=== PATIENT | female | born 1945 | race Caucasian/White ===

== ENCOUNTER 2018-12-17 18:54 | Inpatient (IN) | payer BC, MEDICARE, OTHER ==
[~2018-12-17] VITALS: Ht 170.2 cm; Wt 89.8 kg
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
[2018-12-18 02:40] VITALS: BP 134/94
[2018-12-18] MEDS ORDERED: CIPR-262 PO (02:58)
[2018-12-18] MEDS ORDERED: GABA-534 PO (02:58)
[2018-12-18] MEDS ORDERED: ATOR20TA PO (02:58)
[2018-12-18] MEDS ORDERED: ASPI-605 PO (02:58)
[2018-12-18] MEDS ORDERED: DOCU100C36 PO (02:58)
[2018-12-18] MEDS ORDERED: LISI-603 PO (02:58)
[2018-12-18] MEDS ORDERED: POLY17PO4 PO (02:58)
[2018-12-18] MEDS ORDERED: ZOLPIDEM TARTRATE 5 MG TABLET PO PRN (03:00)
[2018-12-18] MEDS ORDERED: LORAZEPAM 0.5 MG TABLET PO PRN (03:00)
[2018-12-18] MEDS ORDERED: MAG HYDROX/AL HYDROX/SIMETH 30 ML UDC PO PRN (03:00)
[2018-12-18] MEDS ORDERED: ACETAMINOPHEN 325 MG TABLET PO PRN (03:00)
[2018-12-18] MEDS ORDERED: MAGNESIUM HYDROXIDE 30 ML UDC PO PRN (03:00)
--- NOTE | 2018-12-18 06:35 | NUR ---
RN NOTES CALLED SON, CAN WATSON, AND INFORMED HIM OF HIS MOTHER'S ADMISSION
--- NOTE | 2018-12-18 06:40 | NUR ---
RN NOTES [facility] PAGED- FOR MED. RECON. A/W CALL BACK
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
[2018-12-18] MEDS: Z GUARD REMEDY 2 OZ OINT TP SCH (09:00)
[2018-12-18] MEDS ORDERED: Z GUARD REMEDY 2 OZ OINT TP PRN (09:00)
--- NOTE | 2018-12-18 10:36 | NUR ---
GPS RN NOTED: RECEIVED PT IN THE ROOM RESTING IN BED REFUSED VS, NON COOPERATIVE, REFUSED SKIN ASSESSMENT WITH WOUND NURSE. WILL CONTINUE MONITORING FOR SAFETY AND BEHAVIOR Q 15 MIN
[2018-12-18] MEDS: GABAPENTIN 100 MG CAPSULE PO SCH ×2 (12:30→16:07)
[2018-12-18] MEDS ORDERED: GABAPENTIN 300 MG CAPSULE PO SCH (13:00)
[2018-12-18 13:48] LABS: CALCIUM, SERUM 9.2 mg/dL (8.5-10.1); CARBON DIOXIDE 25 mmol/L (21-32); CHLORIDE 103 mmol/L (98-107); GLUCOSE 136 mg/dL (74-106); POTASSIUM 4.2 mmol/L (3.5-5.1); SODIUM SERUM 138 mmol/L (136-145); UREA NITROGEN, BLOOD 14 mg/dL (7-18)
--- NOTE | 2018-12-18 14:02 | NUR ---
Initial Discharge Plan: Pt currently resides at [facility] located at [address] [place] [id number]; ([phone]). Per pt, she would like to return. SW has a return agreement from the facility stating that she can return. SW will form a safe and proper discharge. Pt will form a safe and proper discharge.
[2018-12-18 16:00] VITALS: BP 127/60
[2018-12-18] MEDS: QUETIAPINE FUMARATE 25 MG TABLET PO SCH ×3 (16:07→22:40)
[2018-12-18] MEDS: POLYETHYLENE GLYCOL 3350 17 GM POWD.PACK PO SCH (16:07)
[2018-12-18] MEDS: CLOTRIMAZOLE 1% 15 GM TUBE TP SCH (16:08)
[2018-12-18] MEDS: CIPROFLOXACIN HCL 500 MG TABLET PO SCH (18:17)
[2018-12-18 20:00] VITALS: BP 125/50
[2018-12-18] MEDS: ATORVASTATIN 10 MG TABLET PO SCH ×2 (22:00→22:39)
[2018-12-19 06:27] LABS: BASOPHILS % (AUTO) 0.4 % (0.0-2.0); EOSINOPHILS % (AUTO) 2.2 % (0.0-6.0); HEMATOCRIT 37 % (33-45); HEMOGLOBIN 12.4 g/dL (11.5-14.8); LYMPHOCYTES # (AUTO) 2.4 /CMM (0.8-4.8); MEAN CORPUSCULAR HGB CONC 34 g/dl (31.0-36.0); MEAN CORPUSCULAR VOLUME 90 fL (82-100); MONOCYTES # (AUTO) 0.8 /CMM (0.1-1.30); MONOCYTES % (AUTO) 9.3 % (2.0-12.0); NEUTROPHILS # (AUTO) 5.2 /CMM (1.8-8.9); NEUTROPHILS % (AUTO) 60.1 % (43.0-81.0); PLATELET COUNT (AUTO) 222 /CMM (150-450); RED BLOOD CELL COUNT(AUTO) 4.08 MIL/uL (4.0-5.2); WHITE BLOOD COUNT (AUTO) 8.6 K/uL (4.3-11.0)
[2018-12-19 06:49] LABS: ALANINE AMINOTRANSFERASE 26 U/L (12-78); ALBUMIN 3.1 g/dL (3.4-5.0); ALKALINE PHOSPHATASE 77 U/L (46-116); ASPARTATE AMINOTRANSFERASE 29 U/L (15-37); BILIRUBIN,TOTAL 0.7 mg/dL (0.2-1.0); CALCIUM, SERUM 8.9 mg/dL (8.5-10.1); CARBON DIOXIDE 26 mmol/L (21-32); CHLORIDE 103 mmol/L (98-107); GLUCOSE 115 mg/dL (74-106); MAGNESIUM 1.8 mg/dL (1.8-2.4); PHOSPHORUS 3.7 mg/dL (2.5-4.9); SODIUM SERUM 139 mmol/L (136-145); TOTAL PROTEIN, SERUM 7.3 g/dL (6.4-8.2); UREA NITROGEN, BLOOD 16 mg/dL (7-18)
[2018-12-19 06:52] LABS: CHOLESTEROL 149 mg/dL (<200); HDL CHOLESTEROL 52 mg/dL (40-60); LDL 79 mg/dL (0-99); THYROID STIMULATING HORMONE 1.892 uIU/mL (0.358-3.74); TRIGLYCERIDES 85 mg/dL (30-150)
[2018-12-19 08:00] VITALS: BP 127/53
[2018-12-19] MEDS: ASPIRIN EC 81 MG TABLET.DR PO SCH (08:37)
[2018-12-19] MEDS: LISINOPRIL (20MG) 20 MG TABLET PO SCH (08:37)
[2018-12-19] MEDS: POLYETHYLENE GLYCOL 3350 17 GM POWD.PACK PO SCH ×2 (08:37→16:47)
[2018-12-19] MEDS: DOCUSATE SODIUM 250 MG CAPSULE PO SCH (08:37)
[2018-12-19] MEDS: CIPROFLOXACIN HCL 500 MG TABLET PO SCH ×2 (08:37→16:47)
[2018-12-19] MEDS: GABAPENTIN 100 MG CAPSULE PO SCH ×3 (08:38→16:47)
[2018-12-19] MEDS: QUETIAPINE FUMARATE 25 MG TABLET PO SCH ×3 (08:38→21:21)
[2018-12-19] MEDS: CLOTRIMAZOLE 1% 15 GM TUBE TP SCH ×2 (08:39→16:47)
[2018-12-19] MEDS: Z GUARD REMEDY 2 OZ OINT TP SCH (09:00)
[2018-12-19 16:00] VITALS: BP 134/58
--- NOTE | 2018-12-19 19:28 | NUR ---
GPS/RN OPENING NOTES RECEIVED PATIENT IN BED, RESTING COMFORTABLY IN BED, PREFER TO STAY IN BED BUT CAN AMBULATE WITH ASSISTANCE DUE TO UNSTEADY GATE. RECEIVED ENDORSEMENT FROM AM RN FOR CELIA. WILL MONITOR.
[2018-12-19 19:36] VITALS: BP 133/81
[2018-12-19 20:16] VITALS: BP 133/81
[2018-12-19] MEDS: ATORVASTATIN 10 MG TABLET PO SCH (21:21)
[2018-12-20 08:00] VITALS: BP 120/52
[2018-12-20] MEDS: POLYETHYLENE GLYCOL 3350 17 GM POWD.PACK PO SCH ×2 (08:33→16:28)
[2018-12-20] MEDS: QUETIAPINE FUMARATE 25 MG TABLET PO SCH ×3 (08:33→21:14)
[2018-12-20] MEDS: DOCUSATE SODIUM 250 MG CAPSULE PO SCH (08:33)
[2018-12-20] MEDS: CIPROFLOXACIN HCL 500 MG TABLET PO SCH ×2 (08:33→16:28)
[2018-12-20] MEDS: ASPIRIN EC 81 MG TABLET.DR PO SCH (08:33)
[2018-12-20] MEDS: LISINOPRIL (20MG) 20 MG TABLET PO SCH (08:33)
[2018-12-20] MEDS: GABAPENTIN 100 MG CAPSULE PO SCH ×3 (08:33→16:28)
[2018-12-20] MEDS: Z GUARD REMEDY 2 OZ OINT TP SCH (08:34)
[2018-12-20] MEDS: CLOTRIMAZOLE 1% 15 GM TUBE TP SCH ×2 (08:36→16:28)
[2018-12-20 16:49] VITALS: BP 130/65
[2018-12-20 20:29] VITALS: BP 133/61
[2018-12-20] MEDS: ATORVASTATIN 10 MG TABLET PO SCH (21:14)
[2018-12-21 08:00] VITALS: BP 139/60
[2018-12-21] MEDS: GABAPENTIN 100 MG CAPSULE PO SCH ×3 (08:42→16:35)
[2018-12-21] MEDS: LISINOPRIL (20MG) 20 MG TABLET PO SCH (08:42)
[2018-12-21] MEDS: CIPROFLOXACIN HCL 500 MG TABLET PO SCH ×2 (08:42→16:35)
[2018-12-21] MEDS: DOCUSATE SODIUM 250 MG CAPSULE PO SCH (08:42)
[2018-12-21] MEDS: QUETIAPINE FUMARATE 25 MG TABLET PO SCH ×3 (08:43→21:05)
[2018-12-21] MEDS: POLYETHYLENE GLYCOL 3350 17 GM POWD.PACK PO SCH ×2 (08:49→16:36)
[2018-12-21] MEDS: ASPIRIN EC 81 MG TABLET.DR PO SCH (08:49)
[2018-12-21] MEDS: Z GUARD REMEDY 2 OZ OINT TP SCH (09:29)
[2018-12-21] MEDS: CLOTRIMAZOLE 1% 15 GM TUBE TP SCH ×2 (09:29→16:49)
--- NOTE | 2018-12-21 09:33 | NUR ---
UR Note: GAIL faxed a clinical to [facility] with attention to Yuan to the fax number: [phone].
--- NOTE | 2018-12-21 14:25 | NUR ---
GAIL called [facility] ([phone]) and spoke to Duc about the pt returning tomorrow and she stated that she would like paperwork to be faxed over.
--- NOTE | 2018-12-21 14:26 | NUR ---
GAIL faxed paperwork to [facility] with attention to Duc to the fax number: [phone].
[2018-12-21 16:00] VITALS: BP 120/58
[2018-12-21 20:00] VITALS: BP 150/98
[2018-12-21] MEDS: ATORVASTATIN 10 MG TABLET PO SCH (21:05)
[2018-12-22 08:00] VITALS: BP 128/60
[2018-12-22] MEDS: DOCUSATE SODIUM 250 MG CAPSULE PO SCH (08:20)
[2018-12-22] MEDS: ASPIRIN EC 81 MG TABLET.DR PO SCH (08:20)
[2018-12-22] MEDS: GABAPENTIN 100 MG CAPSULE PO SCH ×2 (08:20→12:17)
[2018-12-22] MEDS: POLYETHYLENE GLYCOL 3350 17 GM POWD.PACK PO SCH (08:20)
[2018-12-22 08:21] VITALS: BP 128/60
[2018-12-22] MEDS: QUETIAPINE FUMARATE 25 MG TABLET PO SCH (08:21)
[2018-12-22] MEDS: CIPROFLOXACIN HCL 500 MG TABLET PO SCH (08:21)
[2018-12-22] MEDS: LISINOPRIL (20MG) 20 MG TABLET PO SCH (08:21)
[2018-12-22] MEDS: Z GUARD REMEDY 2 OZ OINT TP SCH (08:37)
[2018-12-22] MEDS: CLOTRIMAZOLE 1% 15 GM TUBE TP SCH (08:37)
--- NOTE | 2018-12-22 13:53 | NUR ---
GPS FLAG MAKER NOTE: PT DISCHARGE TO [facility] [address] [place] [address]. PT IN STABLE CONDITION NO S/S DISTRESS NOTED. PT AMBULATORY , DENIES SI/HI, VSS, NO AGITATION, NO AGGRESSIVE BEHAVIOR NOTED. DR PHILIPPE ORDER DC HOLD DC PT TO SNF. PT DENIES SI/HI. EXIT CARE DONE PRINTED , SIGN , GIVEN EXPLAIN TO PT. PT HAS NO BELONGINGS NO FAMILY TO NOTIFIED. PT REFUSED SKIN ASSESSMENT STATING THAT IT WAS DONE BEFORE.
--- NOTE | 2018-12-22 14:12 | NUR ---
Discharge Note: Pt was discharged to [facility] located at [address] [place] [address]; ([phone]). Pt was transported via [facility] at 1PM. There is no one to notify. Upon discharge, the pt appeared to be in a euthymic mood and presented with an anxious affect. Pt denied both suicidal and homicidal ideation as well as auditory and visual hallucinations. Pt will be under the care of her psychiatrist, Dr. Hema George, located at [address] [place] [address]; and her technician automated equipment, Dr. Deni Aiken, located at [address] [address]; .
--- NOTE | 2018-12-22 14:30 | NUR ---
UR Note: GAIL faxed a discharge clinical to [facility] with attention to Chely and Selvin to the fax number: [phone].
== END 2018-12-22 13:40 | DRG 885 ==
LOC: GPS 12-18 02:14
PROVIDERS: ADMIT Psychiatry & Neurology Psychiatry; ATTEND Nurse Practitioner Acute Care
DX: F29 Unspecified psychosis not due to a substance or known physiological condition (principal); E44.1 Mild protein-calorie malnutrition; N39.0 Urinary tract infection, site not specified; F41.9 Anxiety disorder, unspecified; I10 Essential (primary) hypertension; E78.00 Pure hypercholesterolemia, unspecified; E66.9 Obesity, unspecified; Z68.31 Body mass index [BMI] 31.0-31.9, adult; B96.89 Other specified bacterial agents as the cause of diseases classified elsewhere; E88.09 Other disorders of plasma-protein metabolism, not elsewhere classified; F20.0 Paranoid schizophrenia; Z87.891 Personal history of nicotine dependence
CPT/HCPCS: 36415; 80048-TC; 80053-TC; 80061-TC; 83735-TC; 84100-TC; 84443-TC; 85025-TC; 87081-TC